=== PATIENT | male | born 1940 | race Caucasian/White ===

== ENCOUNTER → 2020-10-13 | Outpatient (CLI) | payer MEDICARE, OTHER ==
[2020-10-13 12:08] LABS: HEMOGLOBIN 16.8 gm/dl (14.0-17.5); RED BLOOD COUNT 4.54 M/UL (4.20-5.50); WHITE BLOOD COUNT 6.7 K/UL (4.5-11.0)
[2020-10-13 12:26] LABS: BUN/CREATININE RATIO 19 (0-10)
== END ==
LOC: ECHO 11:22
PROVIDERS: Internal Medicine Cardiovascular Disease
DX: I10 Essential (primary) hypertension (principal)
CPT/HCPCS: ECHO; 36415; 80053; 80061; 83735; 84439; 84443; 85025; 93306

== ENCOUNTER → 2020-12-03 | Outpatient (CLI) | payer MEDICARE, OTHER ==
[~2020-12-03] MED LIST: ASPIRIN CHEWABL81 MG PO; B-121000 MCG PO; COSENTYX P150 MG/1 M SQ; GLUCOPHAGE 500500 MG PO; HYDROCHLOROTHIA25 MG PO; HYDROCODON-ACE1 EAC4 PO; LEVOFLOXACIN500 MG PO; ZESTRIL 40 MG T40 MG PO
[2020-12-03 13:07] LABS: BUN/CREATININE RATIO 16 (0-10)
[2020-12-03 13:20] LABS: RED BLOOD COUNT 4.68 M/UL (4.20-5.50); WHITE BLOOD COUNT 8.7 K/UL (4.5-11.0)
[2020-12-06 06:44] LABS: QUANTIFERON MITOGEN VALUE >10.00 IU/mL (.); QUANTIFERON NIL VALUE 0.04 IU/mL (.); QUANTIFERON TB1 AG VALUE 0.04 IU/mL (.); QUANTIFERON TB2 AG VALUE 0.05 IU/mL (.); QUANTIFERON-TB GOLD PLUS Negative (Negative)
== END ==
LOC: LAB 10:42
PROVIDERS: Dermatology
DX: J43.9 Emphysema, unspecified (principal); L40.0 Psoriasis vulgaris; L40.1 Generalized pustular psoriasis; J84.9 Interstitial pulmonary disease, unspecified
CPT/HCPCS: 36415; 71046; 80053; 85027

== ENCOUNTER → 2020-12-25 | Outpatient (CLI) | payer MEDICARE, OTHER ==
[2020-12-25 09:39] LABS: HEMOGLOBIN 16.9 gm/dl (14.0-17.5); RED BLOOD COUNT 4.61 M/UL (4.20-5.50); WHITE BLOOD COUNT 5.9 K/UL (4.5-11.0)
[2020-12-25 09:54] LABS: BUN/CREATININE RATIO 16 (0-10)
== END ==
LOC: LAB 08:31
PROVIDERS: Internal Medicine Cardiovascular Disease
DX: R00.1 Bradycardia, unspecified (principal); I10 Essential (primary) hypertension; I44.1 Atrioventricular block, second degree
CPT/HCPCS: 36415; 71046; 80048; 85025; 85610; 85730; 93005; U0003

== ENCOUNTER 2020-12-29 07:18 | Outpatient (CLI) | payer MEDICARE, OTHER ==
[~2020-12-29] VITALS: Ht 175.3 cm; Wt 74.8 kg
[2020-12-29] MEDS ORDERED: ASPIRIN CHEWABL81 MG PO (08:27)
[2020-12-29] MEDS ORDERED: B-121000 MCG PO (08:28)
[2020-12-29] MEDS ORDERED: COSENTYX P150 MG/1 M SQ (08:29)
[2020-12-29] MEDS ORDERED: HYDROCHLOROTHIA25 MG PO (08:30)
[2020-12-29] MEDS ORDERED: GLUCOPHAGE 500500 MG PO (08:30)
[2020-12-29] MEDS ORDERED: ZESTRIL 40 MG T40 MG PO (08:30)
[2020-12-29] MEDS ORDERED: HYDROCODON-ACE1 EAC4 PO (09:53)
[2020-12-29] MEDS ORDERED: LEVOFLOXACIN500 MG PO (09:53)
== END 2020-12-30 11:05 | disposition home or self-care (01) ==
LOC: PROG CARE 07:18 → CATH 07:18 → PROG CARE 11:24 → CATH 12-30 11:05
DX: I44.1 Atrioventricular block, second degree (principal); I10 Essential (primary) hypertension; R00.1 Bradycardia, unspecified; F17.200 Nicotine dependence, unspecified, uncomplicated; L40.9 Psoriasis, unspecified; Z20.822 Contact with and (suspected) exposure to COVID-19
CPT/HCPCS: 33208; 71045; 82962; 93005; 99152; 99153; C1785; C1898; J0360; J0690; J1200; J1644; J2250; J3010; J3370; J7040; J7070

== ENCOUNTER → 2021-12-09 | Outpatient (CLI) | payer MEDICARE ==
[2021-12-09 13:40] LABS: HEMOGLOBIN 16.6 gm/dl (14.0-17.5); RED BLOOD COUNT 4.65 M/UL (4.20-5.50); WHITE BLOOD COUNT 7.5 K/UL (4.5-11.0)
[2021-12-09 14:00] LABS: BUN/CREATININE RATIO 17 (0-10)
[2021-12-12 18:12] LABS: QUANTIFERON MITOGEN VALUE >10.00 IU/mL (.); QUANTIFERON NIL VALUE 0.03 IU/mL (.); QUANTIFERON TB1 AG VALUE 0.03 IU/mL (.); QUANTIFERON TB2 AG VALUE 0.03 IU/mL (.); QUANTIFERON-TB GOLD PLUS Negative (Negative)
== END ==
LOC: RAD 13:03
PROVIDERS: Dermatology
DX: J43.9 Emphysema, unspecified (principal); M19.031 Primary osteoarthritis, right wrist; L40.0 Psoriasis vulgaris; L40.1 Generalized pustular psoriasis
CPT/HCPCS: 36415; 71046; 73100; 80053; 80076; 85025; 85027